=== PATIENT | male | born 1980 ===

== ENCOUNTER 2017-12-21 12:44 | Emergency (ER) | payer OTHER ==
[~2017-12-21] VITALS: Ht 177.8 cm; Wt 98.4 kg
== END 2017-12-21 17:46 | disposition home or self-care (01) ==
LOC: ER 12:44
DX: K64.4 Residual hemorrhoidal skin tags (principal)

== ENCOUNTER 2017-12-24 11:32 | Inpatient (IN) | payer OTHER ==
[~2017-12-24] VITALS: Ht 172.7 cm; Wt 98.4 kg
[2017-12-26] MEDS ORDERED: DICLOFENAC POTA50 MG PO (09:26)
[2017-12-26] MEDS ORDERED: COLACE100 MG PO (09:26)
[2017-12-26] MEDS ORDERED: PERCOCET 5-3251 EACH PO (09:26)
== END 2017-12-26 09:49 | disposition home or self-care (01) | DRG 348 ==
LOC: ER 11:32 → SEC-K 14:32 → O/R 12-25 15:04
PROVIDERS: Surgery
PROC: 3E0T3BZ Introduction of Anesthetic Agent into Peripheral Nerves and Plexi, Percutaneous Approach (ICD-10-PCS; 2017-12-25)
PROC: 06BY0ZC Excision of Hemorrhoidal Plexus, Open Approach (ICD-10-PCS; principal; 2017-12-25 18:45)
DX: K64.5 Perianal venous thrombosis (principal); K62.5 Hemorrhage of anus and rectum; K62.89 Other specified diseases of anus and rectum; K64.4 Residual hemorrhoidal skin tags